=== PATIENT | male | born 1950 | race Caucasian/White ===

== ENCOUNTER → 2016-12-06 | Outpatient (CLI) | payer MEDICARE, OTHER ==
[~2016-12-06] MED LIST: ALL DAY ALLERGY10 M2 PO; BACLOFEN10 MG PO; BAYER ASPIRIN325 M1 PO; BUPROPION HCL150 M1 PO; BUPROPION HCL150 MG PO; CETIRIZINE HCL10 MG PO; CIPRO PO; CLOPIDOGREL BIS75 MG PO; CLOPIDOGREL75 MG PO; COATED ASPIRIN325 M1 PO; DESYREL150 M1 PO; DETROL PO; ECOTRIN325 MG PO; FLAGYL PO; FLEXERIL10 MG PO; GABAPENTIN300 M2 PO; GABAPENTIN300 MG PO; LIPITOR40 MG; LIPITOR40 MG PO; LISINOPRIL10 MG PO; METOPROLOL TAR25 MG PO; OMEPRAZOLE20 M1 PO; PANTOPRAZOLE SO40 MG PO; PHENERGAN12.5 MG PO; RISPERDAL2 MG PO; RITALIN LA20 MG PO; RITALIN PO; TOLTERODINE TART4 MG PO
[2016-12-06 14:04] LABS: HEMATOCRIT 43.2 % (38.0-50.0); HEMOGLOBIN 14.5 gm/dL (13.0-16.0); MEAN CELL VOLUME 85.4 FL (83-96); MEAN CORPUSCULAR HEMOGLOBIN 28.7 PG (28-34); MEAN CORPUSCULAR HGB CONC 33.6 g/dL (30-36); RED BLOOD COUNT 5.06 X10e (3.90-5.60); RED CELL DISTRIBUTION WIDTH 15.2 % (11.0-15.5); WHITE BLOOD COUNT 5.5 X10e3 (4.0-10.5)
[2016-12-06 14:44] LABS: THYROID STIMULATING HORMONE 1.63 uIU/ml (0.34-5.60)
[2016-12-06 14:51] LABS: FREE THYROXIN (T4) 0.9 ng/dL (0.58-1.64)
[2016-12-06 15:00] LABS: ALBUMIN SERUM 3.7 g/dL (3.5-5.0); BILIRUBIN,TOTAL 0.9 mg/dL (0.2-2.0); CALCIUM SERUM 9.1 mg/dL (8.4-10.2); GLOM FILT RATE Estimated 78.1 mL/min (>60); MAGNESIUM 1.6 mg/dL (1.6-3.0); POTASSIUM 4.7 mmol/L (3.5-5.1); PROTEIN TOTAL SERUM 6.3 g/dL (6.0-8.3)
== END | disposition home or self-care (01) ==
LOC: CLAB 13:42
DX: I25.10 Atherosclerotic heart disease of native coronary artery without angina pectoris (principal)
CPT/HCPCS: 36415; 80053; 80061; 83735; 84439; 84443; 85027